=== PATIENT | male | born 1970 | race Caucasian/White ===

== ENCOUNTER 2023-04-17 07:48 | Day surgery (SDC) | payer BC ==
[~2023-04-17] VITALS: Ht 180.3 cm; Wt 130.3 kg
[~2023-04-17 07:48] MED LIST: FLUT1BLS4 INH; IBUP80TA PO; LISI20TA35 PO; NS 1,000 ML IV ONE
[2023-04-17 09:38] VITALS: TEMP 98.7
[2023-04-17 09:56] VITALS: BP 141/83; O2SAT 94
[2023-04-17] MEDS ORDERED: propofoL 200 MG/20 ML VIAL As Ordered ONE (10:02)
== END 2023-04-17 09:58 | disposition home or self-care (01) ==
LOC: M OPP 07:48
PROVIDERS: ATTEND Internal Medicine Gastroenterology
DX: Z12.11 Encounter for screening for malignant neoplasm of colon (principal); K64.0 First degree hemorrhoids; J45.909 Unspecified asthma, uncomplicated; Z79.899 Other long term (current) drug therapy; Z79.1 Long term (current) use of non-steroidal anti-inflammatories (NSAID)

== ENCOUNTER → 2024-01-16 | Outpatient (REF) | payer BC ==
[~2024-01-16] MED LIST changes: -NS 1,000 ML IV ONE
== END ==
LOC: M LAB REF 16:15
PROVIDERS: ATTEND Family Medicine
DX: F52.21 Male erectile disorder (principal)